=== PATIENT | female | born 1940 | race Caucasian/White ===

== ENCOUNTER 2019-07-28 10:59 | Inpatient (IN) | payer OTHER ==
[~2019-07-28] VITALS: Ht 167.6 cm; Wt 54.4 kg
[~2019-07-28 10:59] MED LIST: ALBU8.5H8 IH; AMLO5TAB9 PO; ASPI-728 PO; BENA20TA11 PO; BUDE10.2 IH; DIGO250T73 PO; FAMO20 PO; FISH OIL 1,01 CAP.EC PO; FLUT16H NASAL; ISOS10TA16 PO; LEVO100 PO; METF-961 PO; MONT10TA21 PO; NITR0.4T52 SL; PRED1 PO; SALMH IH; SIMV-260 PO
[2019-07-28] MEDS ORDERED: RIVA20TA PO (11:25)
[2019-07-28] MEDS ORDERED: GLIM2 PO (11:25)
[2019-07-28] MEDS ORDERED: LINA5TAB PO (11:25)
[2019-07-28] MEDS ORDERED: RANO500T3 PO (11:25)
[2019-07-28] MEDS ORDERED: FERR-89 PO (11:25)
[2019-07-28 11:30] LABS: BASOPHILS % (AUTO) 0.7 % (0.0-2.0); EOSINOPHILS % (AUTO) 2.7 % (1.0-6.0); HEMATOCRIT 33.5 % (36-46); HEMOGLOBIN 11.2 g/dL (12.0-16.0); LYMPHOCYTES # (AUTO) 1.4 K/uL (1.0-4.8); LYMPHOCYTES % (AUTO) 21.4 % (22.0-44.0); MEAN CORPUSCULAR HEMOGLOBIN 29.1 pg (26.0-34.0); MEAN CORPUSCULAR HGB CONC 33.3 G/dL (31.0-37.0); MEAN CORPUSCULAR VOLUME 87 fL (80-100); MONOCYTES # (AUTO) 0.7 K/uL (0.1-1.0); MONOCYTES % (AUTO) 10.3 % (2.0-9.0); NEUTROPHILS # (AUTO) 4.3 K/uL (1.8-7.7); NEUTROPHILS % (AUTO) 64.9 % (40.0-70.0); PLATELET COUNT (AUTO) 138 K/uL (150-450); RED BLOOD CELL COUNT(AUTO) 3.84 MIL/uL (4.00-5.20); RED CELL DISTRIBUTION WIDTH 14.6 % (11.5-14.5)
[2019-07-28] MEDS ORDERED: NITROGLYCERIN 0.4 MG SUBLINGUAL TABLET #25 SL ONE (11:30)
[2019-07-28 11:33] LABS: CALCIUM, TOTAL 9.8 mg/dL (8.8-10.5); CREATININE 0.9 mg/dL (0.60-1.30); POTASSIUM 4.1 mmol/L (3.5-5.1)
[2019-07-28 11:40] LABS: ALBUMIN 4.1 g/dL (3.4-5.0); BILIRUBIN,TOTAL 0.4 mg/dL (0.1-1.0); TOTAL PROTEIN, SERUM 8.4 g/dL (6.4-8.2)
[2019-07-28 11:45] LABS: INR 1.2 (0.9-1.1); PROTHROMBIN TIME 12.4 SEC (9.4-11.6)
[2019-07-28] MEDS ORDERED: ONDANSETRON HCL 4 MG/2 ML VIAL IVP ONE (11:45)
[2019-07-28] MEDS ORDERED: MORPHINE SULFATE 4 MG/ML SYRINGE IVP ONE (11:45)
[2019-07-28] MEDS ORDERED: NITROGLYCERIN 2% (1 GM=INCH) PACKET TP ONE (11:45)
[2019-07-28] MEDS ORDERED: FISH1 PO (12:02)
[2019-07-28] MEDS ORDERED: LEVO125 PO (12:02)
[2019-07-28] MEDS ORDERED: MAGNESIUM HYDROXIDE SUSPENSION 30 ML UDCUP PO PRN (13:15)
[2019-07-28] MEDS ORDERED: ONDANSETRON HCL 4 MG/2 ML VIAL IVP PRN (13:15)
[2019-07-28] MEDS ORDERED: ZOLPIDEM TARTRATE 10 MG TABLET PO PRN (13:15)
[2019-07-28] MEDS ORDERED: ACETAMINOPHEN 325 MG TABLET PO PRN (13:15)
[2019-07-28] MEDS ORDERED: IPRATROPIUM BROMIDE 0.5 MG/2.5 ML NEB SOLUTION NEB PRN (13:15)
[2019-07-28] MEDS ORDERED: HYDROCODONE/ACETAMINOPHEN 5-325 MG TABLET PO PRN (13:15)
[2019-07-28] MEDS ORDERED: MORPHINE SULFATE 2 MG/ML SYRINGE IVP PRN (13:15)
[2019-07-28 15:05] VITALS: BP 141/60
[2019-07-28] MEDS: RIVAROXABAN 20 MG TABLET PO SCH (17:40)
[2019-07-28] MEDS: NITROGLYCERIN 2% (1 GM=INCH) PACKET TP SCH ×2 (17:40→23:48)
[2019-07-28] MEDS: GLIMEPIRIDE 2 MG TABLET PO SCH (17:41)
[2019-07-28 20:00] VITALS: BP 128/55
[2019-07-28] MEDS: DOCUSATE SODIUM 100 MG CAPSULE PO SCH (21:00)
[2019-07-28] MEDS: FLUTICASONE PROPIONATE 50 MCG/SPRAY 16 GM NASAL SPRAY NASAL SCH (21:03)
[2019-07-28] MEDS: RANOLAZINE 500 MG ER TABLET PO SCH (21:04)
[2019-07-29] VITALS (7 sets, daily range): BP systolic 107–128; BP diastolic 46–64
[2019-07-29] MEDS: LEVOTHYROXINE SODIUM 125 MCG TABLET PO SCH (06:35)
[2019-07-29] MEDS: NITROGLYCERIN 2% (1 GM=INCH) PACKET TP SCH ×3 (06:35→17:28)
[2019-07-29 06:46] LABS: CHOL/HDL RATIO 5.8 (3.9-5.7)
[2019-07-29] MEDS: DOCUSATE SODIUM 100 MG CAPSULE PO SCH ×2 (09:00→21:25)
[2019-07-29] MEDS: FLUTICASONE PROPIONATE 50 MCG/SPRAY 16 GM NASAL SPRAY NASAL SCH ×2 (09:00→22:24)
[2019-07-29] MEDS: MONTELUKAST SODIUM 10 MG TABLET PO SCH (09:12)
[2019-07-29] MEDS: DIGOXIN 125 MCG TABLET PO SCH (09:13)
[2019-07-29] MEDS: BENAZEPRIL HCL 20 MG TABLET PO SCH (09:13)
[2019-07-29] MEDS: LinaGLIPtin 5 MG TABLET PO SCH (09:13)
[2019-07-29] MEDS: GLIMEPIRIDE 2 MG TABLET PO SCH ×2 (09:13→17:31)
[2019-07-29] MEDS: FERROUS SULFATE 325 MG EC TABLET PO SCH (09:13)
[2019-07-29] MEDS: OMEGA-3/DHA/EPA/FISH OIL 1,000 MG CAPSULE PO SCH (09:13)
[2019-07-29] MEDS: RANOLAZINE 500 MG ER TABLET PO SCH ×2 (09:13→21:23)
[2019-07-29] MEDS: ASPIRIN 81 MG CHEWABLE TABLET PO SCH (09:14)
[2019-07-29] MEDS: AmLODIPine BESYLATE 5 MG TABLET PO SCH (09:14)
[2019-07-29] MEDS ORDERED: DEXTROSE 50%-WATER 25 GM/50 ML SYRINGE IVP PRN (12:30)
[2019-07-29] MEDS: RIVAROXABAN 20 MG TABLET PO SCH (17:31)
[2019-07-29] MEDS: INSULIN LISPRO 100 UNITS/ML SQ PRN (21:23)
[2019-07-30 01:02] LABS: GLUCOMETER DEV NAME(LOC) 5S.2A; GLUCOSE,POINT OF CARE 107 MG/DL (70-110)
[2019-07-30 01:02] LABS: GLUCOMETER DEV NAME(LOC) 5S.2A; GLUCOSE,POINT OF CARE 155 MG/DL (70-110)
[2019-07-30 04:04] VITALS: BP 109/54
[2019-07-30] MEDS: NITROGLYCERIN 2% (1 GM=INCH) PACKET TP SCH ×4 (06:00→17:42)
[2019-07-30] MEDS: LEVOTHYROXINE SODIUM 125 MCG TABLET PO SCH (06:15)
[2019-07-30 06:42] LABS: GLUCOMETER DEV NAME(LOC) 5N.2; GLUCOSE,POINT OF CARE 112 MG/DL (70-110)
[2019-07-30 06:42] LABS: GLUCOMETER DEV NAME(LOC) 5N.2; GLUCOSE,POINT OF CARE 148 MG/DL (70-110)
[2019-07-30 08:07] VITALS: BP 132/54
[2019-07-30] MEDS: FERROUS SULFATE 325 MG EC TABLET PO SCH (10:07)
[2019-07-30] MEDS: DOCUSATE SODIUM 100 MG CAPSULE PO SCH (10:07)
[2019-07-30] MEDS: OMEGA-3/DHA/EPA/FISH OIL 1,000 MG CAPSULE PO SCH (10:08)
[2019-07-30] MEDS: BENAZEPRIL HCL 20 MG TABLET PO SCH (10:08)
[2019-07-30] MEDS: AmLODIPine BESYLATE 5 MG TABLET PO SCH (10:10)
[2019-07-30] MEDS: DIGOXIN 125 MCG TABLET PO SCH (10:10)
[2019-07-30] MEDS: ASPIRIN 81 MG CHEWABLE TABLET PO SCH (10:11)
[2019-07-30] MEDS: LinaGLIPtin 5 MG TABLET PO SCH (10:11)
[2019-07-30] MEDS: RANOLAZINE 500 MG ER TABLET PO SCH (10:12)
[2019-07-30] MEDS: GLIMEPIRIDE 2 MG TABLET PO SCH ×2 (10:12→17:55)
[2019-07-30 11:20] VITALS: BP 125/49
[2019-07-30] MEDS: INSULIN LISPRO 100 UNITS/ML SQ PRN (13:00)
[2019-07-30] MEDS: FLUTICASONE PROPIONATE 50 MCG/SPRAY 16 GM NASAL SPRAY NASAL SCH (13:07)
[2019-07-30] MEDS: MONTELUKAST SODIUM 10 MG TABLET PO SCH (13:07)
[2019-07-30] MEDS: RIVAROXABAN 20 MG TABLET PO SCH (17:55)
[2019-07-30 21:36] LABS: GLUCOMETER DEV NAME(LOC) 5S.2A; GLUCOSE,POINT OF CARE 166 MG/DL (70-110)
[2019-07-31 02:53] LABS: GLUCOMETER DEV NAME(LOC) 5N.2; GLUCOSE,POINT OF CARE 70 MG/DL (70-110)
== END 2019-07-30 19:00 | disposition home or self-care (01) | DRG 198 ==
LOC: EMS 10:59 → 5S 14:35
PROVIDERS: ADMIT Internal Medicine; ATTEND Internal Medicine
DX: R07.89 Other chest pain (principal); I25.10 Atherosclerotic heart disease of native coronary artery without angina pectoris; E44.0 Moderate protein-calorie malnutrition; J44.9 Chronic obstructive pulmonary disease, unspecified; I11.0 Hypertensive heart disease with heart failure; E11.9 Type 2 diabetes mellitus without complications; I48.20 Chronic atrial fibrillation, unspecified; I50.22 Chronic systolic (congestive) heart failure; E78.00 Pure hypercholesterolemia, unspecified; E03.9 Hypothyroidism, unspecified; E78.5 Hyperlipidemia, unspecified; I34.0 Nonrheumatic mitral (valve) insufficiency; Z68.1 Body mass index [BMI] 19.9 or less, adult; Z79.01 Long term (current) use of anticoagulants; Z95.0 Presence of cardiac pacemaker; Z95.5 Presence of coronary angioplasty implant and graft; Z88.6 Allergy status to analgesic agent; Z79.899 Other long term (current) drug therapy
CPT/HCPCS: 93005; 93306; 96374; 99291; J2270; J2405

== ENCOUNTER 2020-07-15 06:06 | Day surgery (SDC) | payer OTHER ==
[2020-07-13 11:03] LABS: COVID AG,FIA SOURCE NASOPHARYNGEAL
[~2020-07-15] VITALS: Ht 167.6 cm; Wt 42.7 kg
[~2020-07-15 06:06] MED LIST changes: -AMLO5TAB9 PO; -ASPI-728 PO; -FAMO20 PO; -FISH OIL 1,01 CAP.EC PO; -FLUT16H NASAL; -ISOS10TA16 PO; -LEVO100 PO; +LEVO125 PO; +LINA5TAB PO; -METF-961 PO; +MONT-35 PO; -MONT10TA21 PO; -PRED1 PO; +RANO500T3 PO; +RIVA20TA PO; -SALMH IH; -SIMV-260 PO
[2020-07-15] MEDS ORDERED: SODIUM CHLORIDE 0.9% 1,000 ML IV ONE (06:30)
[2020-07-15] MEDS ORDERED: SODIUM CHLORIDE 0.9% 1,000 ML ONE (06:33)
[2020-07-15] MEDS ORDERED: MIDAZOLAM HCL 2 MG/2 ML VIAL ONE (07:59)
[2020-07-15] MEDS ORDERED: FentaNYL CITRATE PF 100 MCG/2 ML VIAL ONE (07:59)
[2020-07-15 08:53] LABS: GLUCOMETER DEV NAME(LOC) SDS.; GLUCOSE,POINT OF CARE 133 MG/DL (70-110)
[2020-07-15] MEDS ORDERED: MethylPREDNISolone SOD SUCC 125 MG/2 ML VIAL IVP ONE (09:00)
[2020-07-15] MEDS ORDERED: OXYGEN THERAPY IH SCH (20:00)
== END 2020-07-15 10:35 | disposition home or self-care (01) ==
LOC: SURGERY 06:06
PROVIDERS: ATTEND Internal Medicine Critical Care Medicine
DX: J38.4 Edema of larynx (principal); B37.0 Candidal stomatitis; I25.10 Atherosclerotic heart disease of native coronary artery without angina pectoris; J44.9 Chronic obstructive pulmonary disease, unspecified
CPT/HCPCS: 31623; 31624; 71045; 82962; 87015; 87070; 87077; 87101; 87186; 87205; 87206; 87220; 87426; 88108; 88184; 88185; 88312; 93005; C9803; J2250; J2930; J3010; J7030